=== PATIENT | female | born 1970 | race American Indian/Alaskan Native ===

== ENCOUNTER 2020-05-29 10:24 | Emergency (ER) | payer MEDICARE ==
[2020-05-29] MEDS ORDERED: ACETAMINOPHEN 325 MG TAB PO ONE (12:27)
--- NOTE | 2020-05-29 12:28 | Emergency Department Report ---
ED Fever HPI - General Chief Complaint: Fever Stated Complaint: COVID SX Time Seen by Provider: 05/29/20 12:25 - History of Present Illness Initial Comments: Patient is a 50-year-old female with history of rectal cancer status post intervention to rectum who presents for evaluation of 2 days of diarrhea associated with malaise. Patient presents febrile, unaware she had fever. Denies abdominal pain, complains of rectal pain. ED Review of Systems ROS: Stated complaint: COVID SX Other details as noted in HPI Comment: All other systems reviewed and negative ED Past Medical Hx - Past Medical History Previous Medical History?: Yes Additional medical history: Rectal CA - Surgical History Past Surgical History?: No - Social History Smoking Status: Never Smoker ED Physical Exam - General Limitations: No Limitations General appearance: alert, in no apparent distress - Head Head exam: Present: atraumatic, normocephalic - Eye Eye exam: Present: normal appearance - ENT ENT exam: Present: mucous membranes moist - Neck Neck exam: Present: normal inspection - Respiratory Respiratory exam: Present: normal lung sounds bilaterally. Absent: respiratory distress - Cardiovascular Cardiovascular Exam: Present: regular rate, normal rhythm. Absent: systolic murmur, diastolic murmur, rubs, gallop - GI/Abdominal GI/Abdominal exam: Present: soft, normal bowel sounds - Rectal Rectal exam: Present: other (deep nonhealing wound to right medial gluteus with granulation tissue) - Extremities Exam Extremities exam: Present: normal inspection - Back Exam Back exam: Present: normal inspection - Neurological Exam Neurological exam: Present: alert, oriented X3 - Psychiatric Psychiatric exam: Present: normal affect, normal mood - Skin Skin exam: Present: warm, dry, intact, normal color. Absent: rash ED Course Vital Signs 05/29/20 05/29/20 05/29/20 12:10 12:15 12:19 Temperature 99.2 F Pulse Rate 83 79 Respiratory 12 22 Rate Blood Pressure 165/78 Blood Pressure 139/82 [Left] O2 Sat by Pulse 100 100 100 Oximetry 05/29/20 05/29/20 13:04 13:05 Temperature Pulse Rate 73 Respiratory 20 Rate Blood Pressure Blood Pressure 169/86 [Left] O2 Sat by Pulse 100 100 Oximetry - Reevaluation(s) Reevaluation #1: 05/29/20 14:52 unable to clinically assess for abscess vs. infection of surgical wound given depth, CT ordered. treated presumptively with zosyn and morphine. KCL PO/IV. 05/29/20 14:55 Reevaluation #2: 05/29/20 14:52 ct, labwork, xr all reassuring. patient in NAD. Oxygen saturation 100% RA. Advised f/u with PMD for re-evaluation and covid test. ED Medical Decision Making - Lab Data Result diagrams: 05/29/20 12:34 05/29/20 12:34 Vital Signs 05/29/20 12:19 Temperature 99.2 F Pulse Rate 79 Respiratory 22 Rate Blood Pressure 139/82 [Left] O2 Sat by Pulse 100 Oximetry Vital Signs 05/29/20 05/29/20 05/29/20 12:10 12:15 12:19 Temperature 99.2 F Pulse Rate 83 79 Respiratory 12 22 Rate Blood Pressure 165/78 Blood Pressure 139/82 [Left] O2 Sat by Pulse 100 100 100 Oximetry 05/29/20 05/29/20 13:04 13:05 Temperature Pulse Rate 73 Respiratory 20 Rate Blood Pressure Blood Pressure 169/86 [Left] O2 Sat by Pulse 100 100 Oximetry Lab Results 05/29/20 05/29/20 05/29/20 Range/Units 12:34 12:34 13:32 WBC 5.8 (4.5-11.0) K/mm3 RBC 3.07 L (3.65-5.03) M/mm3 Hgb 8.3 L (10.1-14.3) gm/dl Hct 26.0 L (30.3-42.9) % MCV 85 (79-97) fl MCH 27 L (28-32) pg MCHC 32 (30-34) % RDW 16.3 H (13.2-15.2) % Plt Count 390 (140-440) K/mm3 Lymph % (Auto) 29.2 (13.4-35.0) % Rankin % (Auto) 12.4 H (0.0-7.3) % Eos % (Auto) 0.6 (0.0-4.3) % Baso % (Auto) 0.1 (0.0-1.8) % Lymph # (Auto) 1.7 (1.2-5.4) K/mm3 Rankin # (Auto) 0.7 (0.0-0.8) K/mm3 Eos # (Auto) 0.0 (0.0-0.4) K/mm3 Baso # (Auto) 0.0 (0.0-0.1) K/mm3 Seg Neutrophils % 57.7 (40.0-70.0) % Seg Neutrophils # 3.4 (1.8-7.7) K/mm3 Sodium 141 (137-145) mmol/L Potassium 2.9 L* (3.6-5.0) mmol/L Chloride 103.4 (98-107) mmol/L Carbon Dioxide 29 (22-30) mmol/L Anion Gap 12 mmol/L BUN 13 (7-17) mg/dL Creatinine 0.5 L (0.6-1.2) mg/dL Estimated GFR > 60 ml/min BUN/Creatinine Ratio 26 % Glucose 85 (65-100) mg/dL Lactic Acid 0.90 (0.7-2.0) mmol/L Calcium 8.4 (8.4-10.2) mg/dL Total Bilirubin < 0.20 (0.1-1.2) mg/dL AST 13 (5-40) units/L ALT 7 (7-56) units/L Alkaline Phosphatase 109 (35-129) units/L Total Protein 7.7 (6.3-8.2) g/dL Albumin 2.7 L (3.9-5) g/dL Albumin/Globulin Ratio 0.5 % Lipase 23 (13-60) units/L - Radiology Data Radiology results: report reviewed Ordering Physician: MARCK JOSHI MD Date of Service: 05/29/20 Procedure(s): CT abdomen pelvis w con Accession Number(s): [id number] cc: MARCK JOSHI MD CT ABDOMEN AND PELVIS WITH CONTRAST HISTORY: Left lower quadrant abdominal pain. COMPARISON: None TECHNIQUE: Routine abdominal and pelvic CT exam performed following intravenous contrast administration.. All CT scans at this location are performed using CT dose reduction for ALARA by means of automated exposure control. FINDINGS: CT ABDOMEN: Lung Bases: No significant abnormality. Liver: No significant abnormality. Biliary: No significant abnormality. Spleen: No significant abnormality. Unenlarged. Pancreas: No significant abnormality. Adrenals: No significant abnormality. Kidneys: No significant abnormality. Lymphatics: No lymphadenopathy. Vasculature: Atherosclerotic but nonaneurysmal abdominal aorta. Bowel/Peritoneum: There are post surgical changes from previous partial bowel resection and placement of left lower quadrant ostomy. There is no shift reduction, free air, or fluid collection. CT PELVIC: : No significant abnormality. Lymphatics: No lymphadenopathy. Osseous Structures: No aggressive appearing osseous lesions. Additional Findings: None IMPRESSION: 1. No acute findings. Signer Name: Felix Askew MD Signed: 05/29/2020 2:42 PM Workstation Name: [id number] Transcribed By: ARIK Dictated By: Felix Askew MD Electronically Authenticated By: Felix Askew MD Signed Date/Time: 05/29/20 144 Ordering Physician: MARCK JOSHI MD Date of Service: 05/29/20 Procedure(s): CT abdomen pelvis w con Accession Number(s): [id number] cc: MARCK JOSHI MD CT ABDOMEN AND PELVIS WITH CONTRAST HISTORY: Left lower quadrant abdominal pain. COMPARISON: None TECHNIQUE: Routine abdominal and pelvic CT exam performed following intravenous contrast administration.. All CT scans at this location are performed using CT dose reduction for ALARA by means of automated exposure control. FINDINGS: CT ABDOMEN: Lung Bases: No significant abnormality. Liver: No significant abnormality. Biliary: No significant abnormality. Spleen: No significant abnormality. Unenlarged. Pancreas: No significant abnormality. Adrenals: No significant abnormality. Kidneys: No significant abnormality. Lymphatics: No lymphadenopathy. Vasculature: Atherosclerotic but nonaneurysmal abdominal aorta. Bowel/Peritoneum: There are post surgical changes from previous partial bowel resection and placement of left lower quadrant ostomy. There is no shift reduction, free air, or fluid collection. CT PELVIC: : No significant abnormality. Lymphatics: No lymphadenopathy. Osseous Structures: No aggressive appearing osseous lesions. Additional Findings: None IMPRESSION: 1. No acute fi ndings. Signer Name: Felix Askew MD Signed: 05/29/2020 2:42 PM Workstation Name: [id number] Transcribed By: ARIK Dictated By: Felix Askew MD Electronically Authenticated By: Felix Askew MD Signed Date/Time: 05/29/20 1445 Critical care attestation.: If time is entered above; I have spent that time in minutes in the direct care of this critically ill patient, excluding procedure time. ED Disposition Clinical Impression: Fever, Rectal pain, chronic, Hypokalemia Disposition: DC-01 TO HOME OR SELFCARE Is pt being admited?: No Condition: Stable Instructions: Hypokalemia, Fever, Adult, [id number] Additional Instructions: Follow-up with primary care doctor in 1 to 2 days for reevaluation and coronavirus testing as discussed. Return to the emergency department for worsening symptoms.
[2020-05-29 12:53] LABS: Basophils % (Auto) 0.1 % (0.0-1.8); Eosinophils % (Auto) 0.6 % (0.0-4.3); Hemoglobin 8.3 gm/dl (10.1-14.3); Lymphocytes # (Auto) 1.7 K/mm3 (1.2-5.4); Lymphocytes % (Auto) 29.2 % (13.4-35.0); Mean Corpuscular HGB Conc 32 % (30-34); Mean Corpuscular Volume 85 fl (79-97); Monocytes # (Auto) 0.7 K/mm3 (0.0-0.8); Monocytes % (Auto) 12.4 % (0.0-7.3); Platelet Count 390 K/mm3 (140-440); Red Blood Count 3.07 M/mm3 (3.65-5.03); Red Cell Distribution Width 16.3 % (13.2-15.2)
--- NOTE | 2020-05-29 12:57 | XRay Report ---
CHEST 1 VIEW 05/29/2020 12:29 PM INDICATION / CLINICAL INFORMATION: fever. COMPARISON: None available. FINDINGS: SUPPORT DEVICES: None. HEART / MEDIASTINUM: No significant abnormality. LUNGS / PLEURA: No significant pulmonary or pleural abnormality. No pneumothorax. ADDITIONAL FINDINGS: No significant additional findings. IMPRESSION: 1. No acute findings. Signer Name: Felix Askew MD Signed: 05/29/2020 12:52 PM Workstation Name: [id number]
[2020-05-29] MEDS ORDERED: SODIUM CHLORIDE 0.9% 1000 ML 1,000 ML IV ONE (13:12)
[2020-05-29 13:19] LABS: Alanine Aminotransferase 7 units/L (7-56); Albumin 2.7 g/dL (3.9-5); Blood Urea Nitrogen 13 mg/dL (7-17); Calcium 8.4 mg/dL (8.4-10.2); Hemolysis Index 6
[2020-05-29 13:20] LABS: BUN/Creatinine Ratio 26
[2020-05-29] MEDS ORDERED: POTASSIUM CHLORIDE 10 MEQ 10 MEQ/100 ML BAG IV ONE (13:26)
[2020-05-29] MEDS ORDERED: POTASSIUM CHLORIDE ER 20 MEQ TAB PO ONE (13:26)
[2020-05-29] MEDS ORDERED: PIPERACIL/TAZOBACTA 4.5/NS 100 4.5 GM/100 ML VIAL IV ONE (13:48)
[2020-05-29] MEDS ORDERED: MORPHINE 2 MG/1 ML INJ IV ONE (13:48)
--- NOTE | 2020-05-29 14:47 | Cat Scan Report ---
CT ABDOMEN AND PELVIS WITH CONTRAST HISTORY: Left lower quadrant abdominal pain. COMPARISON: None TECHNIQUE: Routine abdominal and pelvic CT exam performed following intravenous contrast administrat ion.. All CT scans at this location are performed using CT dose reduction for ALARA by means of autom ated exposure control. FINDINGS: CT ABDOMEN: Lung Bases: No significant abnormality. Liver: No significant abnormality. Biliary: No significant abnormality. Spleen: No significant abnormality. Unenlarged. Pancreas: No significant abnormality. Adrenals: No significant abnormality. Kidneys: No significant abnormality. Lymphatics: No lymphadenopathy. Vasculature: Atherosclerotic but nonaneurysmal abdominal aorta. Bowel/Peritoneum: There are post surgical changes from previous partial bowel resection and placement of left lower quadrant ostomy. There is no shift reduction, free air, or fluid collection. CT PELVIC: : No significant abnormality. Lymphatics: No lymphadenopathy. Osseous Structures: No aggressive appearing osseous lesions. Additional Findings: None IMPRESSION: 1. No acute findings. Signer Name: Felix Askew MD Signed: 05/29/2020 2:42 PM Workstation Name: [email or web address]
[2020-05-30 03:28] VITALS: BP 150/72
== END 2020-05-30 03:23 | disposition home or self-care (01) ==
LOC: ED 10:24
DX: E87.6 Hypokalemia (principal); R50.9 Fever, unspecified; K62.89 Other specified diseases of anus and rectum; G89.29 Other chronic pain; Z85.048 Personal history of other malignant neoplasm of rectum, rectosigmoid junction, and anus
CPT/HCPCS: 36415; 71045; 74177; 80053; 82140; 83690; 85025; 87040; 96365; 96366; 96367; 96375; 99285; J2270; J2543; J3480; J7030; Q9967